=== PATIENT | male | born 1955 | race Caucasian/White ===

== ENCOUNTER 2017-09-27 10:50 | Emergency (ER) | payer OTHER ==
[2017-09-27] MEDS ORDERED: LIDOCAINE HCL-MPF 1% 2ML VIAL ONE (11:27)
[2017-09-27] MEDS ORDERED: KETOROLAC TROMETHAMINE 30MG/ML ONE (11:28)
[2017-09-27] MEDS ORDERED: ACETAMINOPHEN-CODEINE 300/30MG TAB ONE (11:28)
[2017-09-27] MEDS ORDERED: CEFTRIAXONE SODIUM 1 GM ONE (11:28)
== END 2017-09-27 12:07 | disposition home or self-care (01) ==
LOC: EDH 10:50
DX: K02.9 Dental caries, unspecified (principal)
CPT/HCPCS: 96372 ×2; 99284; J0696; J1885; J3490

== ENCOUNTER 2019-03-29 19:19 | Emergency (ER) | payer OTHER ==
[2019-03-29] MEDS ORDERED: KETOROLAC TROMETHAMINE 60 MG/2 ML VIAL ONE (19:46)
[2019-03-29] MEDS ORDERED: CEFTRIAXONE SODIUM 1 GM ONE (19:47)
[2019-03-29] MEDS ORDERED: ACETAMINOPHEN-CODEINE 300/30MG TAB ONE (19:47)
== END 2019-03-29 20:10 | disposition home or self-care (01) ==
LOC: EDH 19:19
DX: K02.9 Dental caries, unspecified (principal)
CPT/HCPCS: 96372 ×2; 99284; J0696; J1885